=== PATIENT | female | born 1940 | race Caucasian/White ===

== ENCOUNTER → 2016-06-05 | Outpatient (CLI) | payer MEDICARE | END | disposition home or self-care (01) | LOC: LABPAT 10:28 | PROVIDERS: ATTEND Orthopaedic Surgery | DX: Z01.812 Encounter for preprocedural laboratory examination (principal) | CPT/HCPCS: 87070 ==

== ENCOUNTER → 2016-06-06 | Outpatient (CLI) | payer MEDICARE ==
[2016-06-06 09:01] LABS: Basophils % (A) 1 %; CH 30.6; CHCM 32.5; Eosinophils # (A) 0.2 k/uL (0-0.7); Eosinophils % (A) 4 %; HCT 40.2 % (34.0-46.0); HDW 2.11; HGB 12.8 gm/dL (11.4-16.0); Luc # (Auto) 0.16; Luc % (Auto) 3; Lymphocytes # (A) 1.8 k/uL (1.0-4.8); Lymphocytes % (A) 29 %; MCH 30.1 pg (25.0-35.0); MCHC 31.8 g/dL (31.0-37.0); MCV 94.6 fL (80.0-100.0); Mean Platelet Volume 6.5; Monocytes # (A) 0.4 k/uL (0-1.0); Monocytes % (A) 6 %; Neutrophils # (A) 3.6 k/uL (1.3-7.7); Neutrophils % (A) 58 %; RBC 4.25 m/uL (3.80-5.40); RDW 12.7 % (11.5-15.5); WBC 6.2 k/uL (3.8-10.6); WBC (Perox) 6.51
[2016-06-06 09:17] LABS: Calcium 9.9 mg/dL (8.4-10.2); Potassium 5.1 mmol/L (3.5-5.1); Total Bilirubin 0.5 mg/dL (0.2-1.3); Total Protein 6.7 g/dL (6.3-8.2)
[2016-06-06 09:20] LABS: INR 1.1 (<1.1); Prothrombin Time 11.3 sec (9.0-12.0)
[2016-06-06 09:23] LABS: Partial Thromboplastin Time 21.5 sec (22.0-30.0)
[2016-06-06 09:26] LABS: Appearance,Urine Cloudy (Clear); Bacteria,Urine Rare /hpf; Bilirubin,Urine Negative (Negative); Glucose,Urine (UA) Negative (Negative); Ketones,Urine Negative (Negative); Leukocyte Esterase,Urine Large (Negative); Mucus,Urine Rare /hpf; Nitrite,Urine Negative (Negative); PH, Urine 5.5 (5.0-8.0); Particle Count 25291; Protein,Urine Trace (Negative); RBC,Urine 15 /hpf (0-5); Specific Gravity,Urine 1.018 (1.001-1.035); Squamous Epithelial Cell,Urine 19 /hpf (0-4); UA Billing (MACRO vs. MICRO) MICRO; Urobilinogen,Urine <2.0 mg/dL (<2.0); WBC,Urine 40 /hpf (0-5)
== END | disposition home or self-care (01) ==
LOC: LABPAT 08:13
PROVIDERS: ATTEND Orthopaedic Surgery
DX: Z01.812 Encounter for preprocedural laboratory examination (principal); Z01.810 Encounter for preprocedural cardiovascular examination
CPT/HCPCS: 80053; 81001; 85025; 85610; 85730; 86850; 86900; 86901

== ENCOUNTER 2016-06-16 06:01 | Inpatient (IN) | payer MEDICARE ==
[2016-06-09 16:48] VITALS: BMI 37.5
[~2016-06-16 06:01] MED LIST: ACETAMINOPHEN TAB 500 MG TAB PO ONE; DEXAMETHASONE SOD PHOSPHATE 10 MG/ML 1 ML VIAL IV ONE; HYDROmorphone 1 MG/ML 1 ML SYRINGE IVP PRN; LACTATED RINGERS 1,000 ML IV SCH; MELOXICAM 7.5 MG TAB PO ONE; MIDAZOLAM 2 MG/2 ML VIAL IV PRN; ONDANSETRON 4 MG/2 ML VIAL IVP ONE; ROPIVACAINE 246.25 MG, EPINEPHrine 0.5 MG, KETOROLAC 30 MG, cloNIDine HCL/PF 80 MCG, WA... MISCELLANE ONE; TRANEXAMIC ACID 1,000 MG in SODIUM CHLORIDE 0.9% 100 ML IVPB ONE; ceFAZolin 2 GM in SODIUM CHLORIDE 0.9% 100 ML IVPB ONE
[2016-06-16] MEDS ORDERED: LIDOCAINE 1% 20 ML VIAL (10MG/ML) FOR IV START INTRADERMA ONE (06:50)
[2016-06-16 06:57] LABS: Glucose,Whole Blood 146 mg/dL (75-99)
[2016-06-16] MEDS ORDERED: fentaNYL (PF) 50 MCG/ML 2 ML AMP ONE (07:25)
[2016-06-16] MEDS ORDERED: PHENYLEPHRINE-0.9% NACL SYG 1 MG/10 ML SYRINGE ONE (07:25)
[2016-06-16] MEDS ORDERED: HEPARIN SODIUM,PORCINE 10,000 UNIT/ML 1 ML VIAL ONE (07:25)
[2016-06-16] MEDS ORDERED: TRANEXAMIC ACID 1,000 MG/10 ML VIAL ONE (07:25)
[2016-06-16] MEDS ORDERED: MIDAZOLAM 2 MG/2 ML VIAL ONE (07:25)
[2016-06-16] MEDS ORDERED: SODIUM CHLORIDE 0.9% 100 ML BAG ONE (07:25)
[2016-06-16] MEDS ORDERED: PROPOFOL 10 MG/ML 20 ML VIAL IV ONE (07:25)
[2016-06-16] MEDS ORDERED: SODIUM CHLORIDE 0.9% IRRIG 1,000 ML BTL IRRIGATION ONE (07:25)
[2016-06-16] MEDS ORDERED: ceFAZolin 3,000 MG in SODIUM CHLORIDE 0.9% IRRIGATIO 3,000 ML IRRIGATION ONE (08:07)
[2016-06-16] MEDS ORDERED: LACTATED RINGERS 1,000 ML IV ONE (08:49)
[2016-06-16] MEDS ORDERED: NALOXONE 0.4 MG/ML 1 ML VIAL IV PRN (09:16)
[2016-06-16] MEDS ORDERED: HYDROcodone/APAP 5-325MG 1 EACH TAB PO PRN (09:16)
[2016-06-16] MEDS ORDERED: HYDROmorphone 1 MG/ML 1 ML SYRINGE IVP PRN ×3 (09:16)
[2016-06-16] MEDS ORDERED: DIAZEPAM 5 MG TAB PO PRN ×2 (09:16)
[2016-06-16] MEDS ORDERED: MAGNESIUM HYDROXIDE 2,400 MG/10 ML CUP PO PRN (09:16)
[2016-06-16] MEDS ORDERED: ONDANSETRON 4 MG/2 ML VIAL IVP PRN (09:16)
[2016-06-16 09:39] LABS: Glucose,Whole Blood 154 mg/dL (75-99)
--- NOTE | 2016-06-16 09:48 | XR ---
Limited right hip HISTORY: Right hip arthroplasty 2 intraoperative C-arm images document the procedure.
--- NOTE | 2016-06-16 09:49 | XR ---
Limited right hip HISTORY: Status post right hip arthroplasty Single frontal view of the right hip No comparisons Patient is status post right hip arthroplasty. There is anatomic alignment. Lucency in the soft tissu es compatible with postop state IMPRESSION: Orthopedic follow-up
--- NOTE | 2016-06-16 10:09 | FL ---
Fluoroscopy HISTORY: Pain 36 seconds fluoroscopy time supplied to the referring clinician. 2 intraoperative C-arm images docum ent the procedure. See dictated report from orthopedic surgery.
--- NOTE | 2016-06-16 10:17 | P.OP ---
Date of Procedure: 06/16/16 Preoperative Diagnosis: Severe osteoarthritis right hip Postoperative Diagnosis: Severe osteoarthritis right hip Procedure(s) Performed: Right total hip arthroplasty with a direct anterior approach Implants: Stearns and nephew Polarstem size 1 standard [employer]arns [employer] Nephew R3, 3 hole acetabular shell, 48 mm [employer]arns [employer]hew reflection 6.5 mm cancellus screw, 20 mm 2 [employer]hew R3, XLPE 20 acetabular liner [employer]hew Oxinium femoral head 32 m, +0 All components were press-fit. The articulation is ceramic on polyethylene. Anesthesia: spinal Surgeon: Aurelio Roger Personal Property Assessor #1: Eliz Vinson Estimated Blood Loss (ml): 150 (63 mL returned with Cell Saver) Pathology: other (Femoral head) Condition: stable Disposition: PACU Indications for Procedure: After failure of conservative treatment we discussed the surgical and nonsurgical treatment options at length. Patient wishes to proceed with a total hip arthroplasty with a direct anterior approach. Complications specific to this procedure were discussed at length, including but not limited to infection, leg length discrepancy, dislocation, and nerve injury. Patient is aware of all these complications and informed consent was obtained Operative Findings: The operative findings are consistent with severe osteoarthritis of the right hip Description of Procedure: Patient was seen and evaluated in the preoperative area, consent was reviewed, and the surgical site was marked with a skin marker. Patient was then brought to the operating room and given prophylactic antibiotics intravenously. 1 g of Tranexamic acid was also given. A spinal anesthetic was administered by the anesthesia department. A Herrera catheter was then placed by the nursing staff. The patient was then placed on the [place] table with the bony prominences well- padded. The hip area was then prepped and draped in usual sterile fashion. A universal timeout was then performed, which confirmed the patient's name, surgical site, ALLERGIES, and procedure being performed. Next the incision site was located at 1 cm distal and 1 cm lateral to the anterior superior iliac spine. The skin and subcutaneous tissues were sharply incised. Incision was carefully dissected down to the fascia overlying the tensor fascia caitlyn muscle. This fascia was then incised in line with the incision. Next, using blunt finger dissection, the tensor fascia caitlyn muscle was dissected off its investing fascia. The muscle was then carefully retracted laterally with a cobra retractor over the lateral neck of the femur. Next, the circumflex vessels were identified and cauterized using the AquaMantis device. The anterior hip capsule was then exposed. The capsule was then opened and an inverted T fashion. Retention sutures were placed in the inferior arms of the capsule. Cobra retractors were then placed intracapsularly. The proximal femur was then visualized. The femoral neck was then osteotomized appropriate level above the lesser trochanter. Small amount of traction was placed with the [place] table. A small wedge of bone was then removed from the remaining femoral head. Next, using a corkscrew femoral head was easily removed from the acetabulum. On gross visual inspection, the femoral head had complete loss of articular cartilage in multiple periarticular osteophytes. Attention was then turned to the acetabulum. the acetabulum was exposed and any remaining labrum was excised. Sequential reaming of the acetabulum was performed using fluoroscopic guidance. When the appropriate size was reached, a trial was then placed. The position and fit of the trial was checked with fluoroscopy. The trial was then removed. Then, using fluoroscopic guidance, the final implant was impacted at 20 of anteversion and 40 of abduction, and fully seated in the acetabulum. 2 screws were then placed in the acetabulum. Again fluoroscopy was used to check position of the screws. Next, the liner was then impacted, with a 20 elevated liner located in the anterior superior quadrant. Component locking was confirmed. Attention was then directed to the femur. With the aid of the [place] table, the femur was externally rotated to approximately 130, extended, and abducted under the opposite leg. A side hook was then placed under the proximal femur, and the side hook elevator was used to elevate the proximal femur. Retractors were then placed. A capsular release was performed, as well as a release of the conjoined tendon, which afforded excellent visualization of the proximal femur. Next, a box osteotome was used to lateralize the proximal femur. A knit goods press hand was then used to locate the femoral canal. Sequential broaching was then performed with appropriate size which afforded excellent fixation in the proximal femur. A trial was then placed with appropriate head and neck, and the hip was gently reduced with the aid of the [place] table. Fluoroscopy was then used to check position of the components, as well as to ensure equal leg lengths. The hip was then gently dislocated and the trials were then removed. Final implants were then impacted and the hip was again reduced. Final fluoroscopic x-rays confirmed that the components were in anatomic position, as well as equal leg lengths. The hip was also taken through range of motion, and found to be stable. The hip was then copiously irrigated with antibiotic solution with pulsatile lavage. The hip was then irrigated with Irrisept solution. The soft tissues were then injected with ropivacaine solution. A second dose of 1 g of Tranexamic acid was given. the fascia was then closed with 2-0 strata fix suture. The subcutaneous tissue was closed with 3-0 Vicryl. The subcuticular tissue was closed with 3-0 strata fix suture. The skin was then closed with Dermabond tape. The patient was then transferred to the recovery room in stable condition. The marketing assistant manager KRISTI Yuen was required due to the complexity of surgery , and the need for skilled phlebotomy lab assistant for positioning, draping, exposure , retraction, and closure of the wound.
[2016-06-16 12:02] LABS: Glucose,Whole Blood 264 mg/dL (75-99)
--- NOTE | 2016-06-16 13:01 | P.CONS ---
History of Present Illness - Reason for Consult Consult date: 06/16/16 Medical management Requesting physician: Aurelio Roger - Chief Complaint Right hip osteoarthritis - History of Present Illness This is a 76-year-old female with past medical history noted below significant for severe right hip osteoarthritis that was admitted to the hospital for an elective total right hip arthroplasty. Patient is postoperative day #0. She is doing fairly well. She does not have any specific concerns or complaints. Her pain is relatively well-controlled. I was asked to see her for medical management. Review of Systems Review of system: 14 points review of systems were obtained and were negative except to what were mentioned in the HPI. Past Medical History Past Medical History: Asthma, Diabetes Mellitus, Hyperlipidemia, Hypertension, Osteoarthritis (OA), Thyroid Disorder Additional Past Medical History / Comment(s): just started antibiotic for pre- op UTI History of Any Multi-Drug Resistant Organisms: None Reported Past Surgical History: Appendectomy, Back Surgery, Cholecystectomy, Hysterectomy , Orthopedic Surgery Additional Past Surgical History / Comment(s): right shoulder surg. Past Anesthesia/Blood Transfusion Reactions: No Reported Reaction Past Psychological History: No Psychological Hx Reported Smoking Status: Never smoker Past Alcohol Use History: None Reported Past Drug Use History: None Reported - Past Family History Sister(s) Family Medical History: Cancer Medications and Allergies Home Medications Medication Instructions Recorded Confirmed Type Aspirin 81 mg PO DAILY 06/09/16 06/16/16 History Cholecalciferol [Vitamin D3] 1,000 unit PO DAILY 06/09/16 06/16/16 History Gabapentin [Neurontin] 100 mg PO BID 06/09/16 06/16/16 History Hydrochlorothiazide [Hydrodiuril] 50 mg PO DAILY 06/09/16 06/16/16 History Insulin Aspart [NovoLOG] 5 unit SQ 1200,1700 06/09/16 06/16/16 History Insulin Glargine [Lantus] 50 unit SQ QAM 06/09/16 06/16/16 History Levothyroxine Sodium [Synthroid] 75 mcg PO DAILY 06/09/16 06/16/16 History Lisinopril [Zestril] 30 mg PO DAILY 06/09/16 06/16/16 History Pravastatin Sodium [Pravachol] 40 mg PO Q2D 06/09/16 06/16/16 History Sulfamethox-Tmp 800-160Mg [Bactrim 1 tab PO Q12HR 06/09/16 06/16/16 History DS 800-160 mg] traMADol HCl [Ultram] 50 mg PO Q6H PRN 06/09/16 06/16/16 History Allergies Allergy/AdvReac Type Severity Reaction Status Date / Time codeine AdvReac Nausea & Verified 06/16/16 06:21 Vomiting Physical Exam Vitals: Vital Signs Temp Pulse Pulse Resp BP BP Pulse Ox 06/16/16 12:45 101 H 97/57 06/16/16 12:30 97 89/56 06/16/16 12:15 98 105/69 06/16/16 12:00 96 84/65 06/16/16 11:45 97 102/57 06/16/16 11:30 98 112/56 06/16/16 11:15 99 108/58 06/16/16 11:00 90 113/56 06/16/16 10:30 97.3 F L 99 17 122/68 97 06/16/16 10:15 100 16 104/52 98 06/16/16 10:00 98 16 104/51 100 06/16/16 09:45 99 16 109/54 100 06/16/16 09:30 100 16 94/44 100 06/16/16 09:17 97.6 F 102 H 18 96/52 97 06/16/16 07:05 97.5 F L 101 H 18 112/63 96 06/16/16 06:25 97.5 F L 101 H 18 112/63 96 Intake and Output 06/15/16 06/16/16 06/16/16 22:59 06:59 14:59 Intake Total 200 1351 Output Total 190 Balance 200 1161 Intake: IV 200 1351 Output: Urine 40 Estimated Blood Loss 150 General: The patient is awake and alert, in no distress Eye: there is normal conjunctiva bilaterally. Neck: The neck is supple, there is no JVD. Cardiovascular: Normal S1-S2, no S3-S4, no murmurs. Respiratory: Lungs clear to auscultation bilaterally Gastrointestinal: Abdomen is soft, nontender Musculoskeletal: There is no pedal edema. Neurological:. Speech is normal. Skin: Skin is warm and dry Results Labs: Abnormal Lab Results - Last 24 Hours (Table) 06/16/16 06/16/16 06/16/16 Range/Units 06:45 09:36 11:45 POC Glucose (mg/dL) 146 H 154 H 264 H (75-99) mg/dL Assessment and Plan Plan: 1. Severe osteoarthritis of the right hip postoperative day #0 status post right total hip arthroplasty 2. DVT prophylaxis on full dose aspirin twice daily per orthopedic protocol 3. Essential hypertension: Blood pressure on the lower side. I would hold lisinopril for now and monitor closely 4. Mixed hyperlipidemia 5. Type 2 diabetes mellitus continue home dose of Lantus with sliding scale insulin Today, I reviewed her medication list and lab work results. Continue current regimen. Thank you very much for the consultation. I will continue to follow up on the patient closely.
[2016-06-16] MEDS: INSULIN GLARGINE 100 UNIT/ML 10 ML VIAL SQ SCH (13:17)
[2016-06-16] MEDS: INSULIN LISPRO (humaLOG) 300 UNIT/3 ML VIAL SQ SCH ×5 (13:20→20:35)
[2016-06-16] MEDS: HYDROcodone/APAP 5-325MG 1 EACH TAB PO PRN (13:20)
[2016-06-16] MEDS: SODIUM CHLORIDE 0.9% 1,000 ML IV SCH ×2 (13:25→23:14)
[2016-06-16] MEDS: ceFAZolin 2 GM in SODIUM CHLORIDE 0.9% 100 ML IVPB SCH ×2 (16:38→23:15)
[2016-06-16 16:42] LABS: Glucose,Whole Blood 384 mg/dL (75-99)
[2016-06-16 20:29] LABS: Glucose,Whole Blood 294 mg/dL (75-99)
[2016-06-16] MEDS: SENNOSIDES-DOCUSATE SODIUM 1 EACH TAB PO SCH (20:34)
[2016-06-16] MEDS: ASPIRIN 325 MG TAB PO SCH (20:35)
[2016-06-16] MEDS: GABAPENTIN 100 MG CAP PO SCH (20:35)
[2016-06-16] MEDS: PRAVASTATIN SODIUM 40 MG TAB PO SCH (20:35)
[2016-06-17] MEDS: LEVOTHYROXINE 75 MCG TAB PO SCH (05:41)
[2016-06-17] MEDS: HYDROcodone/APAP 5-325MG 1 EACH TAB PO PRN ×3 (05:41→17:34)
[2016-06-17 07:32] LABS: Glucose,Whole Blood 170 mg/dL (75-99)
[2016-06-17 07:53] LABS: Basophils % (A) 0 %; CH 30.3; CHCM 32.2; Eosinophils % (A) 0 %; HCT 29.3 % (34.0-46.0); HDW 2.01; Luc # (Auto) 0.22; Luc % (Auto) 1; Lymphocytes # (A) 1.7 k/uL (1.0-4.8); Lymphocytes % (A) 11 %; MCH 31.1 pg (25.0-35.0); MCHC 32.9 g/dL (31.0-37.0); MCV 94.6 fL (80.0-100.0); Mean Platelet Volume 6.8; Monocytes # (A) 0.8 k/uL (0-1.0); Monocytes % (A) 5 %; Neutrophils # (A) 12.4 k/uL (1.3-7.7); Neutrophils % (A) 82 %; RDW 12.8 % (11.5-15.5); WBC 15.1 k/uL (3.8-10.6); WBC (Perox) 15.38
--- NOTE | 2016-06-17 07:55 | P.PN ---
Subjective Principal diagnosis: Status post right hip total arthroplasty This is a pleasant 76-year-old female who is status post right total hip arthroplasty. Today's postoperative day #1. The patient is seen and evaluated at bedside with Dr. Aurelio Roger. Patient states she's not been up with physical therapy yet. She rates her pain a 6 out of 10. She has no other complaints at this time. Objective - Vital Signs Vital signs: Vital Signs Temp 97 F L 06/17/16 07:00 Pulse 59 L 06/17/16 07:00 Resp 17 06/17/16 07:00 BP 98/53 06/17/16 07:00 Pulse Ox 97 06/17/16 07:00 Intake & Output 06/16/16 06/17/16 06/17/16 18:59 06:59 18:59 Intake Total 2071 1025 Output Total 550 600 150 Balance 1521 425 -150 Intake: IV 1351 825 Sodium Chloride 0.9% 1, 825 000 ml @ 75 mls/hr IV . [id number] [facility] Rx#:[id number] Oral 720 200 Output: Urine 400 600 150 Uretheral (Herrera) 360 600 150 Estimated Blood Loss 150 Other: Voiding Method Indwelling Catheter Indwelling Catheter Indwelling Catheter - Exam The patient does not appear in acute distress. Alert and orientated 3. Dressing is clean dry and intact. Incision appears fine with no erythema or active drainage. Calf is soft and nontender. Good foot and ankle motion without difficulty. Sensation and circulatory status is intact. - Labs Labs: Abnormal Lab Results - Last 24 Hours (Table) 06/16/16 06/16/16 06/16/16 Range/Units 09:36 11:45 16:25 POC Glucose (mg/dL) 154 H 264 H 384 H (75-99) mg/dL 06/16/16 06/17/16 Range/Units 20:25 07:03 POC Glucose (mg/dL) 294 H 170 H (75-99) mg/dL Assessment and Plan (1) Status post right hip replacement Status: Acute (2) Primary localized osteoarthritis of right hip Status: Acute Plan: Continue with routine postoperative care. Anticoagulation with aspirin. Pain control and physical therapy today. Anticipate transfer to rehab likely on Wednesday.
[2016-06-17 07:58] LABS: HGB 9.6 gm/dL (11.4-16.0)
[2016-06-17] MEDS: INSULIN LISPRO (humaLOG) 300 UNIT/3 ML VIAL SQ SCH ×6 (08:03→20:09)
[2016-06-17] MEDS: GABAPENTIN 100 MG CAP PO SCH ×2 (08:04→20:06)
[2016-06-17] MEDS: MELOXICAM 7.5 MG TAB PO SCH (08:04)
[2016-06-17] MEDS: CHOLECALCIFEROL 1,000 UNIT TAB PO SCH (08:04)
[2016-06-17] MEDS: ASPIRIN 325 MG TAB PO SCH ×2 (08:04→20:06)
[2016-06-17] MEDS: INSULIN GLARGINE 100 UNIT/ML 10 ML VIAL SQ SCH (08:06)
[2016-06-17 08:54] LABS: Hemoglobin A1C 7.3 % (4.2-6.1)
[2016-06-17] MEDS ORDERED: ASPIRIN 81 MG CHEW PO SCH (09:00)
[2016-06-17] MEDS ORDERED: LISINOPRIL 10 MG TAB PO SCH (09:00)
[2016-06-17 11:41] LABS: Glucose,Whole Blood 177 mg/dL (75-99)
--- NOTE | 2016-06-17 14:15 | XR ---
EXAMINATION TYPE: XR chest 2V DATE OF EXAM: 06/17/2016 1:56 PM COMPARISON: None HISTORY:Extended-care facility placement TECHNIQUE: Frontal and lateral views of the chest are obtained. FINDINGS: Some minimal increased density present in the posterior costophrenic angle. No evident pne umothorax or pleural effusion. Cardiomediastinal silhouette, pulmonary vascularity and sylwia within no rmal limits. IMPRESSION: Findings may reflect basilar atelectasis, correlate, follow-up as indicated
[2016-06-17 14:19] VITALS: RESP 16
[2016-06-17 16:32] LABS: Glucose,Whole Blood 171 mg/dL (75-99)
[2016-06-17] MEDS: SODIUM CHLORIDE 0.9% 1,000 ML IV SCH (18:52)
[2016-06-17] MEDS: SENNOSIDES-DOCUSATE SODIUM 1 EACH TAB PO SCH (20:06)
[2016-06-17 20:16] LABS: Glucose,Whole Blood 107 mg/dL (75-99)
[2016-06-18] MEDS: HYDROcodone/APAP 5-325MG 1 EACH TAB PO PRN ×2 (04:57→19:33)
[2016-06-18] MEDS: LEVOTHYROXINE 75 MCG TAB PO SCH (05:13)
[2016-06-18 06:55] LABS: Glucose,Whole Blood 99 mg/dL (75-99)
[2016-06-18] MEDS: INSULIN GLARGINE 100 UNIT/ML 10 ML VIAL SQ SCH (07:10)
[2016-06-18] MEDS: MELOXICAM 7.5 MG TAB PO SCH (07:11)
[2016-06-18] MEDS: CHOLECALCIFEROL 1,000 UNIT TAB PO SCH (07:11)
[2016-06-18] MEDS: GABAPENTIN 100 MG CAP PO SCH ×2 (07:11→21:08)
[2016-06-18] MEDS: INSULIN LISPRO (humaLOG) 300 UNIT/3 ML VIAL SQ SCH ×6 (07:12→21:05)
[2016-06-18] MEDS: ASPIRIN 325 MG TAB PO SCH ×2 (07:12→21:08)
--- NOTE | 2016-06-18 08:33 | P.PN ---
Subjective Principal diagnosis: Primary osteoarthritis right hip This is a 68-year-old female who is status post total right hip arthroplasty. She is doing well from an orthopedic standpoint. She has no new complaints or concerns today. Vital signs and labs are stable. Objective - Vital Signs Vital signs: Vital Signs Temp 98.5 F 06/18/16 07:20 Pulse 69 06/18/16 07:20 Resp 16 06/18/16 07:20 BP 102/62 06/18/16 07:20 Pulse Ox 96 06/18/16 07:20 Intake & Output 06/17/16 06/18/16 06/18/16 18:59 06:59 18:59 Intake Total 1080 120 Output Total 550 Balance 530 120 Intake: Oral 1080 120 Output: Urine 550 Uretheral (Herrera) 150 Other: Voiding Method Indwelling Catheter Toilet # Voids 1 1 - Exam This is a pleasant 76-year-old female in no acute distress. She is alert and oriented 3. Exam of the right hip reveals that her dressing is clean, dry and intact. She has full foot and ankle motion without difficulty or pain. Neurovascular status to the right lower extremity is intact. - Labs CBC & Chem 7: 06/17/16 06:37 Labs: Abnormal Lab Results - Last 24 Hours (Table) 06/17/16 06/17/16 06/17/16 Range/Units 06:37 11:35 16:30 POC Glucose (mg/dL) 177 H 171 H (75-99) mg/dL Hemoglobin A1c 7.3 H (4.2-6.1) % 06/17/16 Range/Units 20:09 POC Glucose (mg/dL) 107 H (75-99) mg/dL Hemoglobin A1c (4.2-6.1) % Assessment and Plan (1) Primary localized osteoarthritis of right hip Status: Acute (2) Status post right hip replacement Status: Acute Plan: The clinical findings are discussed the patient. We are planning discharge to inpatient rehab Wednesday.
[2016-06-18 10:17] LABS: Calcium 9.5 mg/dL (8.4-10.2); Potassium 5.9 mmol/L (3.5-5.1); Total Bilirubin 0.3 mg/dL (0.2-1.3); Total Protein 5.6 g/dL (6.3-8.2)
[2016-06-18 10:19] LABS: Basophils % (A) 0 %; CH 29.9; CHCM 31.9; Eosinophils # (A) 0.2 k/uL (0-0.7); Eosinophils % (A) 1 %; HCT 31.2 % (34.0-46.0); HDW 1.99; HGB 10.1 gm/dL (11.4-16.0); Luc # (Auto) 0.16; Luc % (Auto) 1; Lymphocytes # (A) 2.3 k/uL (1.0-4.8); Lymphocytes % (A) 20 %; MCH 30.4 pg (25.0-35.0); MCHC 32.3 g/dL (31.0-37.0); MCV 94.4 fL (80.0-100.0); Mean Platelet Volume 6.8; Monocytes # (A) 0.6 k/uL (0-1.0); Monocytes % (A) 6 %; Neutrophils # (A) 8.3 k/uL (1.3-7.7); Neutrophils % (A) 71 %; RBC 3.31 m/uL (3.80-5.40); RDW 12.7 % (11.5-15.5); WBC 11.6 k/uL (3.8-10.6); WBC (Perox) 12.31
[2016-06-18] MEDS ORDERED: SODIUM POLYSTYRENE SULFONATE 15 GM/60 ML BOTTLE PO STA (11:14)
--- NOTE | 2016-06-18 11:17 | P.PN ---
Subjective Status post right total hip arthroplasty Patient sitting in bedside chair. Pain is controlled. She has been up and ambulating with physical therapy. Denies any chest pain or shortness breath. Denies any nausea or vomiting. Last bowel movement a couple days ago. She is urinating without difficulty. The planning to discharge to [facility] tomorrow Objective - Vital Signs Vital signs: Vital Signs Temp 98.5 F 06/18/16 07:20 Pulse 69 06/18/16 07:20 Resp 16 06/18/16 07:20 BP 102/62 06/18/16 07:20 Pulse Ox 96 06/18/16 07:20 Intake & Output 06/17/16 06/18/16 06/18/16 18:59 06:59 18:59 Intake Total 1080 120 Output Total 550 Balance 530 120 Intake: Oral 1080 120 Output: Urine 550 Uretheral (Herrera) 150 Other: Voiding Method Indwelling Catheter Toilet # Voids 1 1 - Exam Head normocephalic Neck supple Lungs clear to auscultation bilaterally no wheezing or crackles Heart regular rate and rhythm S1-S2, no rub or gallop Abdomen is soft nontender nondistended positive bowel sounds no hepatosplenomegaly Extremities no edema. Right hip dressing clean dry and intact. Neuro alert and orientated to 3 - Labs CBC & Chem 7: 06/18/16 09:34 06/18/16 09:34 Labs: Abnormal Lab Results - Last 24 Hours (Table) 06/17/16 06/17/16 06/17/16 Range/Units 11:35 16:30 20:09 WBC (3.8-10.6) k/uL RBC (3.80-5.40) m/uL Hgb (11.4-16.0) gm/dL Hct (34.0-46.0) % Neutrophils # (1.3-7.7) k/uL Potassium (3.5-5.1) mmol/L BUN (7-17) mg/dL Creatinine (0.52-1.04) mg/dL POC Glucose (mg/dL) 177 H 171 H 107 H (75-99) mg/dL Total Protein (6.3-8.2) g/dL Albumin (3.5-5.0) g/dL 06/18/16 06/18/16 Range/Units 09:34 09:34 WBC 11.6 H (3.8-10.6) k/uL RBC 3.31 L (3.80-5.40) m/uL Hgb 10.1 L (11.4-16.0) gm/dL Hct 31.2 L (34.0-46.0) % Neutrophils # 8.3 H (1.3-7.7) k/uL Potassium 5.9 H (3.5-5.1) mmol/L BUN 41 H (7-17) mg/dL Creatinine 1.95 H (0.52-1.04) mg/dL POC Glucose (mg/dL) (75-99) mg/dL Total Protein 5.6 L (6.3-8.2) g/dL Albumin 3.2 L (3.5-5.0) g/dL Assessment and Plan Plan: 1. Severe osteoarthritis of the right hip postoperative day #2 status post right total hip arthroplasty 2. DVT prophylaxis on full dose aspirin twice daily per orthopedic protocol 3. Essential hypertension: Blood pressure on the lower side. Lisinopril and hydrochlorothiazide on hold 4. Mixed hyperlipidemia 5. Type 2 diabetes mellitus continue home dose of Lantus with sliding scale insulin 6. Leukocytosis likely reactive: White count is trending down. Chest x-ray did show atelectasis. Continue incentive spirometry use 7. Hyperkalemia we'll give 1 dose of Kayexalate 30 g. Repeat labs in morning 8. Acute on chronic kidney disease, stage IIIB. Hold hydrochlorothiazide. We' ll place patient on normal saline at 50 mL an hour. Repeat labs in a.m. Anticipate discharge to [facility] tomorrow
[2016-06-18 11:21] LABS: Glucose,Whole Blood 57 mg/dL (75-99)
[2016-06-18] MEDS ORDERED: SODIUM CHLORIDE 0.9% 1,000 ML IV SCH (11:30)
[2016-06-18 11:38] LABS: Glucose,Whole Blood 63 mg/dL (75-99)
[2016-06-18 12:03] LABS: Glucose,Whole Blood 99 mg/dL (75-99)
[2016-06-18 17:19] LABS: Glucose,Whole Blood 93 mg/dL (75-99)
[2016-06-18 19:58] LABS: Glucose,Whole Blood 118 mg/dL (75-99)
[2016-06-18] MEDS: SENNOSIDES-DOCUSATE SODIUM 1 EACH TAB PO SCH (21:04)
[2016-06-18] MEDS: PRAVASTATIN SODIUM 40 MG TAB PO SCH (21:08)
[2016-06-19] MEDS: LEVOTHYROXINE 75 MCG TAB PO SCH (05:48)
[2016-06-19 07:11] LABS: Glucose,Whole Blood 64 mg/dL (75-99)
[2016-06-19] MEDS: HYDROcodone/APAP 5-325MG 1 EACH TAB PO PRN ×2 (07:12→12:36)
[2016-06-19] MEDS: MELOXICAM 7.5 MG TAB PO SCH (07:13)
[2016-06-19] MEDS: INSULIN LISPRO (humaLOG) 300 UNIT/3 ML VIAL SQ SCH ×3 (07:14→12:37)
[2016-06-19] MEDS: GABAPENTIN 100 MG CAP PO SCH (07:14)
[2016-06-19] MEDS: CHOLECALCIFEROL 1,000 UNIT TAB PO SCH (07:14)
[2016-06-19] MEDS: ASPIRIN 325 MG TAB PO SCH (07:14)
[2016-06-19] MEDS: hydrOXYzine PAMOATE 25 MG CAP PO PRN ×2 (07:15→11:17)
[2016-06-19 07:30] LABS: Glucose,Whole Blood 97 mg/dL (75-99)
[2016-06-19 07:49] VITALS: BP 155/75; PULSE 80; TEMP 98.2
[2016-06-19 07:54] LABS: Basophils # (A) 0.1 k/uL (0-0.2); Basophils % (A) 1 %; CH 30.3; CHCM 32.5; Eosinophils # (A) 0.3 k/uL (0-0.7); Eosinophils % (A) 3 %; HCT 31.5 % (34.0-46.0); HDW 2.09; HGB 10.4 gm/dL (11.4-16.0); Luc # (Auto) 0.19; Luc % (Auto) 2; Lymphocytes % (A) 19 %; MCH 30.8 pg (25.0-35.0); MCHC 32.9 g/dL (31.0-37.0); MCV 93.5 fL (80.0-100.0); Mean Platelet Volume 7.8; Monocytes # (A) 0.7 k/uL (0-1.0); Monocytes % (A) 6 %; Neutrophils # (A) 7.5 k/uL (1.3-7.7); Neutrophils % (A) 70 %; RBC 3.37 m/uL (3.80-5.40); RDW 12.8 % (11.5-15.5); WBC 10.8 k/uL (3.8-10.6); WBC (Perox) 11.44
[2016-06-19 08:13] LABS: Calcium 9.2 mg/dL (8.4-10.2); Potassium 5.4 mmol/L (3.5-5.1); Total Bilirubin 0.4 mg/dL (0.2-1.3); Total Protein 5.6 g/dL (6.3-8.2)
--- NOTE | 2016-06-19 08:51 | P.DS ---
Providers Date of admission: 06/16/16 06:01 Expected date of discharge: 06/19/16 Attending physician: Aurelio Roger Consults: 06/16/16 09:16 Consult Physician Routine Consulting Provider: Anil Katz Consult Reason/Comments: medical management Do you want consulting provider notified?: Yes Primary care physician: Stated None - Discharge Diagnosis(es) (1) Status post right hip replacement Current Visit: Yes Status: Acute (2) Primary localized osteoarthritis of right hip Current Visit: Yes Status: Acute Hospital Course: This is a pleasant 76-year-old female who was last seen in our office with complaints of right hip pain. Patient has known history of degenerative arthritis of the right hip and presented to discuss options. After discussion consideration the patient elected to proceed with a right total hip arthroplasty. Patient was seen preoperatively medically cleared for surgery by her primary care physician. Patient was admitted to [facility] and underwent right total hip arthroplasty. The procedure was performed without complications or sequelae. The patient has done well postoperatively. Potassium was elevated yesterday and she was given Kayexalate. pain has been are reasonably controlled and is progressing with physical therapy. The patient has no new complaints today. Patient denies shortness of breath, nausea or abdominal pain. The patient appears comfortable and in no acute distress. Dressing is clean dry and intact. Incision is fine with no erythema or active drainage. Calf is soft and nontender. The patient has good foot and ankle motion without difficulty. Lower extremities are neurovascularly intact. The patient is orthopedically stable for discharge once she is cleared medically. Pertinent Studies: Laboratory Tests 06/19/16 06/19/16 06:50 06:50 WBC 10.8 H RBC 3.37 L Hgb 10.4 L Hct 31.5 L MCV 93.5 MCH 30.8 MCHC 32.9 Sodium 140 Potassium 5.4 H Chloride 107 Carbon Dioxide 24 Anion Gap 9 BUN 31 H Creatinine 1.48 H Est GFR (MDRD) Af Amer 41 Est GFR (MDRD) Non-Af 34 Glucose 58 L Total Protein 5.6 L Albumin 3.0 L Patient Condition at Discharge: Good Plan - Discharge Summary New Discharge Prescriptions: Aspirin 325 mg PO BID #60 tab HYDROcodone/APAP 5-325MG [[place] 5-325] 1 - 2 each PO Q4-6H PRN #90 tab PRN Reason: Pain Sennosides-Docusate Sodium [Senokot-S] 1 tab PO BID #60 tablet Discharge Medication List Cholecalciferol [Vitamin D3] 1,000 unit PO DAILY 06/09/16 [History] Gabapentin [Neurontin] 100 mg PO BID 06/09/16 [History] Hydrochlorothiazide [Hydrodiuril] 50 mg PO DAILY 06/09/16 [History] Insulin Aspart [NovoLOG] 5 unit SQ 1200,1700 06/09/16 [History] Insulin Glargine [Lantus] 50 unit SQ QAM 06/09/16 [History] Levothyroxine Sodium [Synthroid] 75 mcg PO DAILY 06/09/16 [History] Pravastatin Sodium [Pravachol] 40 mg PO Q2D 06/09/16 [History] Aspirin 325 mg PO BID #60 tab 06/18/16 [Rx] HYDROcodone/APAP 5-325MG [[place] 5-325] 1 - 2 each PO Q4-6H PRN #90 tab 06/18/16 [Rx] Sennosides-Docusate Sodium [Senokot-S] 1 tab PO BID #60 tablet 06/18/16 [Rx] Follow up Appointment(s)/Referral(s): Aurelio Roger DO [Doctor of Osteopathic Medicine] - 07/03/16 9:00 am Activity/Diet/Wound Care/Special Instructions: Weightbearing as tolerated with walker Follow hip precautions and use abductor pillow as instructed Daily dressing changes Keep incision clean and dry [facility] with questions or concerns [phone] CHECK Cbc, BMP on wednesday Dr. Katz to follow at [facility] Discharge Disposition: TRANSFER TO SNF/ECF
[2016-06-19] MEDS: INSULIN GLARGINE 100 UNIT/ML 10 ML VIAL SQ SCH (09:12)
[2016-06-19] MEDS ORDERED: SODIUM POLYSTYRENE SULFONATE 15 GM/60 ML BOTTLE PO STA (10:10)
[2016-06-19 11:51] LABS: Glucose,Whole Blood 123 mg/dL (75-99)
--- NOTE | 2016-06-19 14:32 | P.PN ---
Subjective Status post right total hip arthroplasty Patient sitting in bedside chair. Pain is controlled. She has been up and ambulating with physical therapy. Denies any chest pain or shortness breath. Patient is complaining of some nausea. The planning of some upset stomach. Denies any vomiting. Patient did have a bowel movement yesterday. They're anticipating discharge to [facility] today. She has been up and ambulating in the hallway Objective - Vital Signs Vital signs: Vital Signs Temp 98.2 F 06/19/16 07:48 Pulse 80 06/19/16 07:48 Resp 16 06/19/16 07:48 BP 155/75 06/19/16 07:48 Pulse Ox 97 06/19/16 07:48 Intake & Output 06/18/16 06/19/16 06/19/16 18:59 06:59 18:59 Intake Total 480 590 Balance 480 590 Intake: Oral 480 590 Other: Voiding Method Toilet # Voids 1 - Exam Head normocephalic Neck supple Lungs clear to auscultation bilaterally no wheezing or crackles Heart regular rate and rhythm S1-S2, no rub or gallop Abdomen is soft nontender nondistended positive bowel sounds no hepatosplenomegaly Extremities no edema. Right hip dressing clean dry and intact. Neuro alert and orientated to 3 - Labs CBC & Chem 7: 06/19/16 06:50 06/19/16 06:50 Labs: Abnormal Lab Results - Last 24 Hours (Table) 06/18/16 06/19/16 06/19/16 Range/Units 19:56 06:50 06:50 WBC 10.8 H (3.8-10.6) k/uL RBC 3.37 L (3.80-5.40) m/uL Hgb 10.4 L (11.4-16.0) gm/dL Hct 31.5 L (34.0-46.0) % Potassium 5.4 H (3.5-5.1) mmol/L BUN 31 H (7-17) mg/dL Creatinine 1.48 H (0.52-1.04) mg/dL Glucose 58 L (74-99) mg/dL POC Glucose (mg/dL) 118 H (75-99) mg/dL Total Protein 5.6 L (6.3-8.2) g/dL Albumin 3.0 L (3.5-5.0) g/dL 06/19/16 06/19/16 Range/Units 07:08 11:30 WBC (3.8-10.6) k/uL RBC (3.80-5.40) m/uL Hgb (11.4-16.0) gm/dL Hct (34.0-46.0) % Potassium (3.5-5.1) mmol/L BUN (7-17) mg/dL Creatinine (0.52-1.04) mg/dL Glucose (74-99) mg/dL POC Glucose (mg/dL) 64 L 123 H (75-99) mg/dL Total Protein (6.3-8.2) g/dL Albumin (3.5-5.0) g/dL Assessment and Plan Plan: 1. Severe osteoarthritis of the right hip postoperative day #3 status post right total hip arthroplasty 2. DVT prophylaxis on full dose aspirin twice daily per orthopedic protocol 3. Essential hypertension: Blood pressure on the lower side. Blood pressures have shown improvement. 4. Mixed hyperlipidemia 5. Type 2 diabetes mellitus continue home dose of Lantus with sliding scale insulin 6. Leukocytosis likely reactive: White count is trending down. Chest x-ray did show atelectasis. Continue incentive spirometry use 7. Hyperkalemia : Potassium is at 5.4. She'll receive another dose of Kayexalate. Patient has been eating bananas. She's been educated to avoid bananas or other potassium source foods. Follow-up in the outpatient setting and her potassium level anticipate to check BMP level on Wednesday 8. Acute on chronic kidney disease, stage IIIB. Creatinine has shown some improvement stone to 1.48 close to baseline. Patient had chlorothiazide will be restarted at the long-term 9. Nausea: We will 1 dose of Zofran. Possibly related to taking pain medication without food Patient will be restarted on her hydrochlorothiazide starting tomorrow. We'll continue holding the lisinopril due to the lower blood pressures and hyperkalemia. Blood pressure this morning was 155/75 when both the hydrochlorothiazide and lisinopril were held. Patient is medically stable for discharge. Dr. Lowe we'll follow patient at [facility]. Check CBC and BMP on Wednesday
== END 2016-06-19 15:11 | DRG 470 ==
LOC: 2ORMAIN 06:01 → 3SUR 09:14
PROVIDERS: ADMIT Orthopaedic Surgery; ATTEND Orthopaedic Surgery
PROC: 0SR904A Replacement of Right Hip Joint with Ceramic on Polyethylene Synthetic Substitute, Uncemented, Open Approach (ICD-10-PCS; principal; 2016-06-16 07:30)
DX: M16.11 Unilateral primary osteoarthritis, right hip (principal); E11.9 Type 2 diabetes mellitus without complications; J45.909 Unspecified asthma, uncomplicated; E78.5 Hyperlipidemia, unspecified; I10 Essential (primary) hypertension; Z88.5 Allergy status to narcotic agent; Z79.82 Long term (current) use of aspirin; Z79.4 Long term (current) use of insulin; Z79.899 Other long term (current) drug therapy; Z87.891 Personal history of nicotine dependence
CPT/HCPCS: 71020; 73501; 80053; 83036; 85025; 86850; 86891; 86900; 86901; 88300

== ENCOUNTER 2016-11-08 13:24 | Emergency (ER) | payer MEDICARE ==
[2016-11-08 13:30] VITALS: BP 182/113; PULSE 110; RESP 18; TEMP 97.7
[2016-11-08] MEDS ORDERED: MORPHINE SULFATE 10 MG/ML SYRINGE IM STA (13:37)
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
== END 2016-11-08 14:15 | disposition home or self-care (01) ==
LOC: EC 13:24
DX: T22.211A Burn of second degree of right forearm, initial encounter (principal); T22.212A Burn of second degree of left forearm, initial encounter; T23.271A Burn of second degree of right wrist, initial encounter; E78.5 Hyperlipidemia, unspecified; I10 Essential (primary) hypertension; E11.9 Type 2 diabetes mellitus without complications; E07.9 Disorder of thyroid, unspecified; Z79.4 Long term (current) use of insulin; Z79.899 Other long term (current) drug therapy; Z88.5 Allergy status to narcotic agent; X02.8XXA Other exposure to controlled fire in building or structure, initial encounter
CPT/HCPCS: 99283; 16020; J2270

== ENCOUNTER → 2017-04-23 | Outpatient (CLI) | payer MEDICARE ==
--- NOTE | 2017-04-23 12:36 | EST ---
EXERCISE STRESS AGE: 76 SEX: F HT: 4'11" WT: 188 PROTOCOL: Josh Cardiolite Stress Test STAGE: I DURATION OF EXERCISE: 3:00 HEART RATE REST: 71 BLOOD PRESSURE REST: 153/89 MAXIMUM HEART RATE ACHIEVED: 136 MAXIMUM BLOOD PRESSURE: 156/96 85% MPHR: 121 100% MPHR: 142 METS: 4.6 INDICATIONS: Difficulty in breathing, hypertension. CLINICAL INFORMATION: Baseline EKG revealed normal sinus rhythm without significant ST-T changes. Patient walked on standard Josh protocol for 3 minutes, achieved a maximal heart rate of 136 beats per minute which is more than 85% of predicted maximal. There was a lot of artifact on the EKG. No clear-cut ST-segment changes were noted to indicate ischemia. Patient had a nondescript chest pain seemed very transient and the atypical. By EKG criteria, this is a negative stress test with limited exercise capacity and no evidence of any ischemic changes. The nuclear scan results which are more pertinent, will be reported by the radiologist. KOMAL / IJN: [id number] /
--- NOTE | 2017-04-23 14:19 | NM ---
EXAMINATION TYPE: NM stress cardiolite complete DATE OF EXAM: 04/23/2017 COMPARISON: Chest x-ray 06/17/2016 HISTORY: Hypertension and shortness of breath TECHNIQUE: After the intravenous administration of 11 mCi Tc 99m Sestamibi - Rest images obtained 50 minutes post injection. The patient exercised using a CORDELL protocol and 1 minute prior to peak ex ercise was injected with 28.5 mCi Tc 99m Sestamibi - Stress images obtained 20 minutes post injection . Patient achieved 95% of predicted maximal heart rate. FINDINGS: Review of stress and rest SPECT images demonstrates no distinct perfusion abnormality. Gated analysi s shows normal wall motion with an estimated left ventricular ejection fraction of 57 %. IMPRESSION: No scintigraphic evidence for reversible ischemia
== END | disposition home or self-care (01) ==
LOC: RADNMMAIN 08:10
PROVIDERS: ATTEND Family Medicine
DX: R06.02 Shortness of breath (principal); I10 Essential (primary) hypertension
CPT/HCPCS: 93017; 78452; A9500

== ENCOUNTER 2017-12-01 07:52 | Day surgery (SDC) | payer MEDICARE ==
[2017-11-26 15:48] VITALS: BMI 35.9
[~2017-12-01 07:52] MED LIST changes: -ACETAMINOPHEN TAB 500 MG TAB PO ONE; -DEXAMETHASONE SOD PHOSPHATE 10 MG/ML 1 ML VIAL IV ONE; -HYDROmorphone 1 MG/ML 1 ML SYRINGE IVP PRN; +LIDOCAINE 1% 20 ML VIAL (10MG/ML) FOR IV START INTRADERMA PRN; -MELOXICAM 7.5 MG TAB PO ONE; -ONDANSETRON 4 MG/2 ML VIAL IVP ONE; -ROPIVACAINE 246.25 MG, EPINEPHrine 0.5 MG, KETOROLAC 30 MG, cloNIDine HCL/PF 80 MCG, WA... MISCELLANE ONE; -TRANEXAMIC ACID 1,000 MG in SODIUM CHLORIDE 0.9% 100 ML IVPB ONE; -ceFAZolin 2 GM in SODIUM CHLORIDE 0.9% 100 ML IVPB ONE
[2017-12-01 08:17] VITALS: RESP 18
[2017-12-01 08:32] LABS: Glucose,Whole Blood 119 mg/dL (75-99)
[2017-12-01 08:33] VITALS: TEMP 96.8
[2017-12-01] MEDS ORDERED: PROPOFOL 10 MG/ML 20 ML VIAL IV ONE (08:47)
--- NOTE | 2017-12-01 08:52 | P.GSHP ---
History of Present Illness H&P Date: 12/01/17 Chief Complaint: Screening colonoscopy This a 77-year-old female who presents today for screening colonoscopy. She denies a significant GI complaints. Past Medical History Past Medical History: Asthma, Diabetes Mellitus, Hyperlipidemia, Hypertension, Osteoarthritis (OA), Thyroid Disorder Additional Past Medical History / Comment(s): just started antibiotic for pre- op UTI History of Any Multi-Drug Resistant Organisms: None Reported Past Surgical History: Appendectomy, Back Surgery, Cholecystectomy, Hysterectomy , Joint Replacement, Orthopedic Surgery Additional Past Surgical History / Comment(s): right shoulder surg. rt hip replacement Past Anesthesia/Blood Transfusion Reactions: No Reported Reaction Smoking Status: Never smoker - Past Family History Sister(s) Family Medical History: Cancer Additional Family Medical History / Comment(s): colon Brother(s) Family Medical History: Cancer Additional Family Medical History / Comment(s): colon Medications and Allergies Home Medications Medication Instructions Recorded Confirmed Type Cholecalciferol [Vitamin D3] 1,000 unit PO DAILY 06/09/16 12/01/17 History Hydrochlorothiazide [Hydrodiuril] 50 mg PO DAILY 06/09/16 12/01/17 History Insulin Glargine [Lantus] 55 unit SQ HS 06/09/16 12/01/17 History Levothyroxine Sodium [Synthroid] 75 mcg PO DAILY 06/09/16 12/01/17 History Pravastatin Sodium [Pravachol] 40 mg PO Q48H 06/09/16 12/01/17 History Aspirin 81 mg PO DAILY 11/08/16 12/01/17 History Lisinopril 30 mg PO DAILY 11/08/16 12/01/17 History Allergies Allergy/AdvReac Type Severity Reaction Status Date / Time codeine AdvReac Nausea & Verified 11/26/17 15:40 Vomiting Surgical - Exam Vital Signs Temp Pulse Resp BP Pulse Ox 96.8 F L 100 18 147/74 96 12/01/17 08:16 12/01/17 08:16 12/01/17 08:16 12/01/17 08:16 12/01/17 08:16 - General well developed, no distress - Eyes PERRL - ENT normal pinna - Neck no masses - Respiratory normal expansion - Cardiovascular Rhythm: regular - Abdomen Abdomen: soft, non tender Results - Labs Abnormal Lab Results - Last 24 Hours (Table) 12/01/17 Range/Units 08:26 POC Glucose (mg/dL) 119 H (75-99) mg/dL Assessment and Plan Assessment: We'll perform screening colonoscopy.
--- NOTE | 2017-12-01 09:18 | P.OP ---
Date of Procedure: 12/01/17 Preoperative Diagnosis: Screening colonoscopy Postoperative Diagnosis: Right colon polyp Transverse colon polyp Diverticulosis Hemorrhoids Procedure(s) Performed: Colonoscopy Anesthesia: MAC Surgeon: Vince Espino Pathology: other (Colon polyps) Condition: stable Disposition: PACU Description of Procedure: The patient's placed on the endoscopy table in the lateral position. Digital rectal exam was performed which revealed internal and external hemorrhoids. The flexible colonoscope was then placed patient anus and passed throughout the entire colon. The ileocecal valve was visualized. Just above the cecum there was a polyp seen this removed with a snare and forcep. The scope was then withdrawn and the remainder the ascending colon was normal. In the transverse colon there was a few scattered diverticula. There is also another polyp seen this removed with snare. The scope was then brought back into the descending; and there were diverticular changes. Scope was then brought back the rectum and this appeared normal. Scope was withdrawn for patient.
[2017-12-01 09:37] VITALS: BP 158/80; PULSE 74
== END 2017-12-01 09:59 | disposition home or self-care (01) ==
LOC: ORWHC2ENDO 07:52
PROVIDERS: ATTEND Surgery
DX: Z12.11 Encounter for screening for malignant neoplasm of colon (principal); D12.3 Benign neoplasm of transverse colon; D12.2 Benign neoplasm of ascending colon; K57.30 Diverticulosis of large intestine without perforation or abscess without bleeding; K64.8 Other hemorrhoids; K64.4 Residual hemorrhoidal skin tags; J45.909 Unspecified asthma, uncomplicated; E11.9 Type 2 diabetes mellitus without complications; Z79.4 Long term (current) use of insulin; E78.5 Hyperlipidemia, unspecified; I10 Essential (primary) hypertension; M19.90 Unspecified osteoarthritis, unspecified site; E07.9 Disorder of thyroid, unspecified; Z79.82 Long term (current) use of aspirin; Z79.890 Hormone replacement therapy; Z79.899 Other long term (current) drug therapy; Z88.5 Allergy status to narcotic agent
CPT/HCPCS: 88305; 45385; J2704

== ENCOUNTER → 2020-01-31 | Outpatient (CLI) | payer MEDICARE ==
--- NOTE | 2020-01-31 13:42 | NM ---
EXAMINATION TYPE: NM stress cardiolite complete DATE OF EXAM: 01/31/2020 COMPARISON: Nuclear medicine stress Cardiolite exam 04/23/2017 HISTORY: Chest pressure TECHNIQUE: After the intravenous administration of 10 mCi Tc 99m Sestamibi - Rest images obtained 45 minutes post injection. The patient exercised using a CORDELL protocol and 1 minute prior to peak ex ercise was injected with 26.3 mCi Tc 99m Sestamibi - Stress images obtained 10 minutes post injection . FINDINGS: Targeted heart rate was achieved during performance of the study. Review of stress and rest SPECT tee ges demonstrates no distinct perfusion abnormality. Gated analysis shows normal wall motion with an estimated left ventricular ejection fraction of 74 %. TID 1.25 IMPRESSION: 1. No scintigraphic evidence for reversible ischemia. 2. Increased transient ischemic dilatation (TID) of the left ventricle may represent severe multives bill coronary artery disease.
--- NOTE | 2020-01-31 20:02 | EST ---
EXERCISE STRESS AGE: 79 SEX: Female. HEIGHT: 60" WT: 191 pounds PROTOCOL: Cardiolite Josh STAGE: 1 DURATION OF EXERCISE: 3:00 HEART RATE REST: 75 BLOOD PRESSURE REST: 139/75 MAXIMUM HEART RATE ACHIEVED: 127 MAXIMUM BLOOD PRESSURE: 180/84 85% MPHR: 118 100% MPHR: 139 METS: 4.6 INDICATIONS: Difficulty breathing. CLINICAL INFORMATION: STRESS DATA: Heart rate 75. Pressure is 139/75 mmHg. Baseline EKG showed sinus mechanism. The patient exercised on the treadmill according to Josh protocol for a total of 3 minutes and achieved 4.6 METS. Max heart rate was 127, which is about 91% of maximum predicted heart rate. Maximum blood pressure was 180/84 mmHg. Clinically the patient did not have any symptoms of chest pain or chest discomfort and the EKG did not show any significant ST or T-wave abnormalities concerning for ischemia. CONCLUSION: 1. Poor exercise tolerance. 2. Normal EKG in response to exercise. MMODL / IJN: [id number] /
== END | disposition home or self-care (01) ==
LOC: RADNMMAIN 07:48
PROVIDERS: ATTEND Family Medicine
DX: I25.5 Ischemic cardiomyopathy (principal); R07.89 Other chest pain
CPT/HCPCS: 93017; 78452; A9500

== ENCOUNTER 2020-02-19 07:55 | Day surgery (SDC) | payer MEDICARE ==
[2020-02-15 10:09] VITALS: BMI 35.9
[~2020-02-19 07:55] MED LIST changes: +ALPRAZolam 0.25 MG TAB PO PRN; +ALPRAZolam 0.5 MG TAB PO PRN; +ASPIRIN 325 MG TAB PO STA; +ATORVASTATIN 80 MG TAB PO STA; -LACTATED RINGERS 1,000 ML IV SCH; -LIDOCAINE 1% 20 ML VIAL (10MG/ML) FOR IV START INTRADERMA PRN; -MIDAZOLAM 2 MG/2 ML VIAL IV PRN; +NITROGLYCERIN SL TABS 0.4 MG TAB SUBLINGUAL PRN; +SODIUM CHLORIDE 0.9% 1,000 ML in EMPTY BAG 1 BAG IV ONE
[2020-02-19 08:47] LABS: Glucose,Whole Blood 139 mg/dL (75-99)
[2020-02-19 08:48] VITALS: RESP 18; TEMP 98
[2020-02-19 08:57] LABS: Basophils # (A) 0.1 k/uL (0-0.2); Basophils % (A) 2 %; Eosinophils # (A) 0.5 k/uL (0-0.7); Eosinophils % (A) 6 %; HCT 44.8 % (34.0-46.0); HGB 14.5 gm/dL (11.4-16.0); Lymphocytes # (A) 1.8 k/uL (1.0-4.8); Lymphocytes % (A) 22 %; MCH 30.5 pg (25.0-35.0); MCHC 32.3 g/dL (31.0-37.0); MCV 94.3 fL (80.0-100.0); Mean Platelet Volume 6.6; Monocytes # (A) 0.5 k/uL (0-1.0); Monocytes % (A) 6 %; Neutrophils # (A) 5.1 k/uL (1.3-7.7); Neutrophils % (A) 63 %; Platelet Count 322 k/uL (150-450); RBC 4.75 m/uL (3.80-5.40); WBC 8.2 k/uL (3.8-10.6)
[2020-02-19 09:06] LABS: Calcium 9.8 mg/dL (8.4-10.2); Potassium 5.2 mmol/L (3.5-5.1)
[2020-02-19] MEDS ORDERED: VERAPAMIL 2.5 MG/ML 2 ML AMP ONE (09:16)
[2020-02-19] MEDS ORDERED: LIDOCAINE 1% INJ 10MG/ML (20 ML MDV) ONE (09:17)
[2020-02-19] MEDS ORDERED: HEPARIN SODIUM 1,000 UN/ML (10ML VL) ONE (09:29)
[2020-02-19] MEDS ORDERED: MIDAZOLAM 2 MG/2 ML VIAL IV ONE (09:29)
[2020-02-19] MEDS: MIDAZOLAM 2 MG/2 ML VIAL IV ONE ×2 (09:29→10:23)
[2020-02-19] MEDS ORDERED: LIDOCAINE 1% INJ 10MG/ML (20 ML MDV) SQ ONE (09:29)
[2020-02-19] MEDS ORDERED: VERAPAMIL SYRINGE (5 MG/10 ML) INTRAARTER ONE (09:31)
[2020-02-19] MEDS: HEPARIN SODIUM 1,000 UN/ML (10ML VL) IV ONE ×2 (09:31→10:17)
--- NOTE | 2020-02-19 10:07 | P.CARDCATH ---
Date of Procedure: 02/19/20 Preoperative Diagnosis: Symptoms of exertional chest pain and shortness of breath. Stress test is suggestive possible multivessel disease Postoperative Diagnosis: 2 vessel disease Description of Procedure: HISTORY: This is a 79-year-old female with history of hypertension, diabetes mellitus and hypercholesterolemia who has been experiencing exertional chest tightness and shortness of breath. A stress test showed evidence of left in for Evaluation without any focal ischemic changes. The possibility of triple-vessel disease was suggested. Patient is advised to have a cardiac catheterization for definitive diagnosis CONSENT:I have discussed the risks, benefits and alternative therapies for the above-mentioned procedure and for both sedation/analgesia as well as necessary blood product administration, if indicated, as they pertain to this patient. The patient has indicated understanding and acceptance of the risks and procedures discussed. PROCEDURE: Patient was brought to the lab in a fasting state. Patient was given some IV sedation. The right groin is infiltrated with lidocaine and right femoral artery was entered using Seldinger technique. A 6-Lithuanian catheter was left in place and selective coronary arteriography and left ventriculography was performed 5-Lithuanian Clary catheters Patient tolerated the procedure well. No immediate complications were noted and patient went on to have FFR and possible stent placement of the LAD by Dr. Herbert Conscious Sedation: Versed 0.5mg Fentanyl [] g Duration 32minutes HEMODYNAMICS: The aortic pressure is about 140/60. There was no gradient across the aortic valve. Left ventricle end-diastolic pressure is about 5-10 SELECTIVE CORONARY ARTERIOGRAPHY: LEFT MAIN: Heavily calcified. No significant focal lesion THE LEFT ANTERIOR DESCENDING CORONARY ARTERY: . This is a good caliber vessel with about 70% lesion in the midportion with about 70% lesion in the distal portion THE LEFT CIRCUMFLEX AND IS CORONARY ARTERY: Moderate caliber vessel free of occlusive disease THE RIGHT CORONARY ARTERY: . Good caliber vessel and dominant giving rise to good-sized PDA and PLV. The PLV branch has about 80-90% stenosis. PDA has 2 lesions which are about 60-70% lesion. LEFT VENTRICULOGRAPHY: Not Performed FINAL IMPRESSION: Two-vessel disease with lesions in the mid and distal LAD and also in the PLV and also PDA branches of the right coronary artery PLAN: . Dr. Herbert's evaluating patient with FFR. Possible stenting of the LAD followed by maximum medical therapy. The distal vessels of the RCA felt to be too small PROGNOSIS: Guarded
[2020-02-19] MEDS ORDERED: IOPAMIDOL-370 125ML BTL INJ ONE (10:50)
[2020-02-19] MEDS ORDERED: IOPAMIDOL-370 100ML BTL INJ ONE (11:06)
--- NOTE | 2020-02-19 12:58 | P.PRCINT ---
Percutaneous Coronary Int. - Percutaneous Coronary Intervention Percutaneous Coronary Intervention: PROCEDURES PERFORMED: Selective left coronary angiography, iFR of mid LAD. INDICATION: Abnormal stress test with left ventricular dilation concerning for multivessel disease. HISTORY: Patient is a pleasant 79-year-old female with a history of hypertension, diabetes mellitus, hyperlipidemia who has been experiencing increasing shortness breath with exertion as well as occasional chest pains. Patient had a stress test performed which showed left ventricular dilation and concern of triple-vessel disease without any focal ischemic changes. Patient had a diagnostic catheterization performed by my partner and I was asked to evaluate for possible PCI. PROCEDURE: After the risks, benefits and alternatives of the above mentioned procedure explained in detail with the patient, informed consent was obtained. The decision was made to iFR the mid LAD. A 6Fr sheath had been placed in the right radial artery using modified Seldinger technique. A 6Fr CLS 3.5 guide catheter was used to engage the left main. There was a large amount of tortuosity of the innominate and the guide became kinked. The guidewire was easily removed and a new 6-Ethiopian CLS 3.0 guide was used to engage the left main. A 0.014 iFR pressure guidewire was advanced in the left main and normalized. There was a superior left main take and a tortuous origin of the LAD with some difficulty advancing the guidewire into the LAD. The guidewire was inserted into the mid to distal LAD and I have far measurements were obtained. There were some technical difficulties with initial readings having a large amount of drift and therefore this was repeated. Repeat iFR reading showed a reading of 0.92. Due to patient having a low contrast threshold and contrast/shoulder reached as well as amount of radiation, further assessment was deferred. The right radial sheath was removed and a TR band was placed with hemostasis achieved. The patient tolerated the procedure well. Patient was transported back to the post catheterization holding area in stable condition. Conscious Sedation: Patient was monitored under the direct supervision of vision of myself for conscious sedation using Versed and fentanyl for a total duration of 20 minutes HEMODYNAMICS: Aortic: 146/76 SELECTIVE CORONARY ARTERIOGRAPHY: LEFT MAIN: The left main is a large caliber vessel which bifurcates into the LAD and circumflex. There is no significant stenosis. LEFT ANTERIOR DESCENDING CORONARY ARTERY: LAD is a large caliber vessel which wraps around to the apex. There is a mid LAD 50-60% stenosis just after a small caliber diagonal 1 branch. There is a distal LAD calcified tandem 70% and 80% stenosis. LEFT CIRCUMFLEX CORONARY ARTERY: Left circumflex is a moderate caliber vessel without significant stenosis. FINAL IMPRESSION: 1. Coronary artery disease as described above 2. Mid LAD lesion nonsignificant by iFR with a value of 0.92 PLAN: 1. Aggressive risk factor modification per most recent ACC/AHA guidelines. 2. Due to contrast threshold and radiation dosing, further assessment was deferred. Would recommend attempting medical therapy for distal LAD and PDA lesions as these are fairly small caliber vessels. If patient does have persistent angina, may consider PCI of the PDA or distal LAD.
[2020-02-19 14:17] VITALS: PULSE 58
[2020-02-19 15:53] VITALS: BP 123/85
== END 2020-02-19 16:15 | disposition home or self-care (01) ==
LOC: CATHCVL 07:55
PROVIDERS: ATTEND Internal Medicine Cardiovascular Disease
DX: I25.10 Atherosclerotic heart disease of native coronary artery without angina pectoris (principal); I77.1 Stricture of artery; R07.89 Other chest pain; R06.02 Shortness of breath; R94.39 Abnormal result of other cardiovascular function study; E78.5 Hyperlipidemia, unspecified; I10 Essential (primary) hypertension; E78.00 Pure hypercholesterolemia, unspecified; E11.9 Type 2 diabetes mellitus without complications; Z79.4 Long term (current) use of insulin; Z79.899 Other long term (current) drug therapy; Z79.890 Hormone replacement therapy; Z79.82 Long term (current) use of aspirin; Z88.5 Allergy status to narcotic agent
CPT/HCPCS: 93458; 93571; 85347; 80048; 85025; C1769 ×3; C1887; C1894; J2250; J2001; J1644; Q9967 ×2